=== PATIENT | male | born 1935 | race Caucasian/White ===

== ENCOUNTER 2021-01-16 12:59 | Inpatient (IN) ==
[2021-01-18] MEDS: *HR* LORazepam 0.5 MG TABLET PO PRN (20:42)
[2021-01-18] MEDS: Beer can PO SCH (20:52)
[2021-01-19 05:16] LABS: Basophils # 0.1 K/mcL (0.0-0.2); Basophils % 0.8 %; Eosinophils # 0.1 K/mcL (0.0-0.6); Eosinophils % 1.6 %; Hematocrit 35.3 % (37.5-50.1); Hemoglobin 11.8 g/dL (12.9-16.9); Immature Granulocytes % 1.9 % (0-4); Lymphocytes # 1.1 K/mcL (0.6-4.6); Lymphocytes % 17.7 %; Mean Corpuscular HGB Conc 33.4 g/dL (31.6-35.5); Mean Corpuscular Hemoglobin 31.9 pg (28.0-33.3); Mean Corpuscular Volume 95.4 fL (83.0-100.0); Mean Platelet Volume 9.4 fL (9.4-12.4); Monocytes # 0.7 K/mcL (0.0-1.3); Monocytes % 11.3 %; Neutrophils # 4.2 K/mcL (1.6-8.9); Platelet Count 226 K/mcL (140-400); Red Cell Distribution Width 12.4 % (11.5-14.5); Segmented Neutrophils % 66.7 %; White Blood Count 6.3 K/mcL (4.3-11.1)
[2021-01-19 05:36] LABS: BUN/Creatinine Ratio 18 (6-26); Blood Urea Nitrogen 18 mg/dL (8-23); Calcium 8.8 mg/dL (8.6-10.3); Carbon Dioxide 22 mEq/L (23-29); Chloride 105 mEq/L (98-107); Glucose 99 mg/dL (70-105); Osmolality,Calculated 284 (280-300); Potassium 3.5 mEq/L (3.5-5.1); Sodium 136 mEq/L (136-145); eGFR For African Americans > 60 (> 60); eGFR For Non-African Americans > 60 (> 60)
[2021-01-19] MEDS: Thiamine (B-1) 100 MG TABLET PO SCH (08:02)
[2021-01-19] MEDS: Metoprolol XL (24 HR) Succ 25 MG TAB.ER.24H PO SCH (08:02)
[2021-01-19] MEDS: Spironolactone 25 MG TABLET PO SCH (08:02)
[2021-01-19] MEDS: Folic Acid 1 MG TABLET PO SCH (08:02)
[2021-01-19] MEDS: Beer can PO SCH ×2 (08:03→15:24)
[2021-01-19] MEDS: *HR* LORazepam 0.5 MG TABLET PO PRN (08:03)
[2021-01-19] MEDS: *HR* LORazepam 2 MG/ML VIAL IVP PRN (19:55)
[2021-01-19] MEDS: Melatonin 3 MG TABLET PO PRN (21:49)
[2021-01-20] MEDS: Beer can PO SCH ×3 (08:26→16:49)
[2021-01-20] MEDS: Spironolactone 25 MG TABLET PO SCH (08:27)
[2021-01-20] MEDS: Metoprolol XL (24 HR) Succ 25 MG TAB.ER.24H PO SCH (08:27)
[2021-01-20] MEDS: Folic Acid 1 MG TABLET PO SCH (08:27)
[2021-01-20] MEDS: Thiamine (B-1) 100 MG TABLET PO SCH (08:27)
[2021-01-20] MEDS: *HR* LORazepam 0.5 MG TABLET PO PRN (18:05)
[2021-01-20] MEDS: Acetaminophen 325 MG TABLET PO PRN (20:17)
[2021-01-20] MEDS: Melatonin 3 MG TABLET PO PRN (20:18)
[2021-01-20] MEDS: *HR* LORazepam 2 MG/ML VIAL IVP PRN (20:19)
[2021-01-21] MEDS: Beer can PO SCH ×3 (08:16→17:06)
[2021-01-21] MEDS: Metoprolol XL (24 HR) Succ 25 MG TAB.ER.24H PO SCH (08:16)
[2021-01-21] MEDS: Thiamine (B-1) 100 MG TABLET PO SCH (08:16)
[2021-01-21] MEDS: Spironolactone 25 MG TABLET PO SCH (08:16)
[2021-01-21] MEDS: Folic Acid 1 MG TABLET PO SCH (08:16)
[2021-01-21] MEDS: *HR* LORazepam 0.5 MG TABLET PO PRN (14:06)
[2021-01-21] MEDS: Melatonin 3 MG TABLET PO PRN (19:52)
[2021-01-21] MEDS: *HR* LORazepam 2 MG/ML VIAL IVP PRN (19:53)
[2021-01-22] MEDS: Folic Acid 1 MG TABLET PO SCH (08:36)
[2021-01-22] MEDS: Spironolactone 25 MG TABLET PO SCH (08:36)
[2021-01-22] MEDS: Beer can PO SCH ×3 (08:36→17:13)
[2021-01-22] MEDS: Thiamine (B-1) 100 MG TABLET PO SCH (08:36)
[2021-01-22] MEDS: Metoprolol XL (24 HR) Succ 25 MG TAB.ER.24H PO SCH (08:36)
[2021-01-22] MEDS: *HR* LORazepam 0.5 MG TABLET PO PRN (15:29)
[2021-01-22] MEDS: Melatonin 3 MG TABLET PO PRN (20:24)
[2021-01-23] MEDS: Metoprolol XL (24 HR) Succ 25 MG TAB.ER.24H PO SCH (08:46)
[2021-01-23] MEDS: Thiamine (B-1) 100 MG TABLET PO SCH (08:46)
[2021-01-23] MEDS: Folic Acid 1 MG TABLET PO SCH (08:46)
[2021-01-23] MEDS: Spironolactone 25 MG TABLET PO SCH (08:46)
[2021-01-23] MEDS: Beer can PO SCH ×3 (08:52→15:58)
[2021-01-23] MEDS: *HR* LORazepam 0.5 MG TABLET PO PRN ×2 (11:05→20:42)
[2021-01-23 17:30] LABS: Bilirubin,Urine Negative (Negative); Blood,Urine Negative (Negative); Clarity,Urine Clear (Clear); Color,Urine Yellow (Yellow); Glucose,Urine (UA) Normal (Normal); Ketones,Urine Negative (Negative); Leukocyte Esterase,Urine Negative (Negative); Nitrite,Urine Negative (Negative); PH,Urine 5.5 pH Units (5.0-8.0); Protein,Urine Negative (Neg-Trace); Specific Gravity,Urine 1.025 (1.010-1.025); Urobilinogen,Urine Normal (Normal)
[2021-01-23] MEDS: Acetaminophen 325 MG TABLET PO PRN (20:41)
[2021-01-23] MEDS: Doxycycline 100 MG CAPSULE PO SCH (20:41)
[2021-01-23] MEDS: Melatonin 3 MG TABLET PO PRN (20:42)
[2021-01-24] MEDS: Spironolactone 25 MG TABLET PO SCH (08:36)
[2021-01-24] MEDS: Folic Acid 1 MG TABLET PO SCH (08:36)
[2021-01-24] MEDS: Doxycycline 100 MG CAPSULE PO SCH ×2 (08:36→19:53)
[2021-01-24] MEDS: Metoprolol XL (24 HR) Succ 25 MG TAB.ER.24H PO SCH (08:36)
[2021-01-24] MEDS: Thiamine (B-1) 100 MG TABLET PO SCH (08:36)
[2021-01-24] MEDS: *HR* LORazepam 0.5 MG TABLET PO PRN ×2 (08:36→18:57)
[2021-01-24] MEDS: Beer can PO SCH ×3 (08:37→16:54)
[2021-01-24] MEDS: Melatonin 3 MG TABLET PO PRN (18:57)
[2021-01-25 06:43] VITALS: BP 138/72
[2021-01-25] MEDS: Doxycycline 100 MG CAPSULE PO SCH (08:07)
[2021-01-25] MEDS: Beer can PO SCH ×2 (08:07→12:08)
[2021-01-25] MEDS: Folic Acid 1 MG TABLET PO SCH (08:07)
[2021-01-25] MEDS: Metoprolol XL (24 HR) Succ 25 MG TAB.ER.24H PO SCH (08:08)
[2021-01-25] MEDS: Thiamine (B-1) 100 MG TABLET PO SCH (08:08)
[2021-01-25] MEDS: Spironolactone 25 MG TABLET PO SCH (08:08)
== END 2021-01-25 15:50 | disposition home or self-care (01) | DRG 897 ==
LOC: INPGRE 01-18 13:47
PROVIDERS: ADMIT Family Medicine; ATTEND Family Medicine